=== PATIENT | male | born 1950 | race African-American/Black ===

== ENCOUNTER 2019-01-25 05:26 | Inpatient (IN) | payer MEDICARE, SELFPAY ==
[2019-01-11 12:00] VITALS: BMI 34.5
[2019-01-25] VITALS (21 sets, daily range): BP systolic 111–171; BP diastolic 65–88; PULSE 70–102; RESP 10–23; TEMP 36.1–37.3; O2SAT 90–100; BMI 35.6
--- NOTE | 2019-01-25 | DI.RAD.S_ITS ---
PROCEDURE: XR LUMBAR SPINE 2-3V INDICATIONS: L3-4 TLIF HARWARE REINSERTION TECHNIQUE: 2 views of the lumbar spine were acquired. COMPARISON: [facility] Outside Film, MR, MR LUMBAR SPINE WITHOUT CONTRAST, 10/29/2018, 16:49. [facility] Outside Film, CR, XR LUMBAR SPINE WITH OBLIQUES, 10/22/2018, 10:33. FINDINGS: Bones: These 2 digital acquisition images are obtained immediately postoperatively, documenting transverse pedicle screws and vertical fixation rods now spanning from L3-S1 and previously there had been fusion from L4-S1. A new interbody disc prosthesis is seen at L3-4 and the previously prior interbody disc prosthesis at L5-S1 is stable over time. Soft tissues: Overlying bowel gas pattern is normal. No suspicious soft tissue calcifications. IMPRESSION: Postoperative changes establish normal alignment, extending posterior fusion to include L3-L4 in addition to the previously present levels covered. Dictated by: Олег Lang M.D. on 01/25/2019 at 13:50 Approved by: Олег Lang M.D. on 01/25/2019 at 13:58
[2019-01-25] MEDS: LACTATED RINGERS 1,000 ML 42 ML IV ×2 (06:45→09:21)
[2019-01-25] MEDS: HYDROMORPHONE 2 MG INJ 1 MG IV (07:42)
--- NOTE | 2019-01-25 07:43 | PM.PREOP ---
Pre-operative Note Interval Note History & Physical reviewed/Exam performed by Physician: Yes Changes to H&P: No
[2019-01-25] MEDS: CEFAZOLIN 2 GM/100 ML FROZ.PIGGY IV ×3 (08:02→21:07)
--- NOTE | 2019-01-25 08:41 | SUR.OPER ---
Prone on spine table, head in foam head support, padded chest and pelvic supports, gel pad at knees, lower legs supported by pillows; nipples, genitalia and toes free of pressure, arms secured on foam padded arm boards at <90 degrees abduction. Tape over blanket at thigh secured to table.
[2019-01-25] MEDS: BUPIVACAINE 0.25% W/ EPI 30 ML VIAL INJ (09:22)
[2019-01-25] MEDS: BUPIVACAINE LIPOSOME 266 MG/20 ML VIAL INJ (09:23)
[2019-01-25] MEDS: ACETAMINOPHEN IV 1,000 MG/100 ML VIAL 400 MG IV (11:48)
--- NOTE | 2019-01-25 12:48 | PM.OP.1 ---
Operative Date/Time/Diagnoses Date of procedure: 01/25/19 Time of procedure: 07:48 Pre-op diagnosis: 1. Hx of L4-5, L5-S1 Fusion with spinal stenosis 2. L3-4 spinal stenosis 3. Lumbar radiculopathy Post-op diagnosis: same Procedure & Clinicians Procedure: 1. L3-4 posterolateral and posterior interbody fusion 2. L3-4 posterior interbody cage placement 3. L4-5, L5-S1 posterior segmental instrumentation removal 4. L4-5, L5-S1 revision laminectomy with exploration of fusion 5. L3-4, L4-5, L5-S1 posterior segmental instrumentation with pedicle screw placement 6. L4-5 posterolatearl fusion 7. Utilization of microsurgical technique and operating microscope Same procedure as scheduled: Yes Indications: Patient has been having chronic back pain and worsening lumbar radiculopathy. Patient had prior fusion surgery and was doing well for several years until his pain started to worsen. Patient failed multiple conservative management with worsening pain weakness and numbness in her lower extremity. Patient has been having difficulty performing activity of daily living. After discussing risks benefits of treatment options, patient elected proceed with surgery. Surgeon: Ping Johns Supervisor Finishing: Lexy Fu Click Yes if Unassisted: No Anesthesia Type: General Operative Notes Closure Type: primary Specimen(s): none sent Prosthetic devices, grafts, tissues, transplants, or devices: Globus revolve screws, Rise cage Applied: catheter Estimated Blood Loss (mL): 450 Blood products transfused: none Procedure in detail: Patient was seen in the preoperative area. Risks and benefits of the surgery was discussed with the patient. Informed consent was obtained from the patient and placed in the chart. Surgical site was marked. Patient was taken to the operative room. General anesthesia was administered. Prophylactic antibiotic was given to the patient less than 30 min before the incision was made. Patient was placed into a prone position on the Severino table. Patient's back was then prepped and draped in the sterile fashion. Time-out was performed at this time. Using patient's previous scar incision was made over the L3-4, L4-5, L5-S1 interval on the left side. Fascia was incised in line with skin incision. Patient's previously placed hardware over the L4-5, L5-S1 level was identified by dissecting down to the level the hardware using a Bovie and a Barker. The locking caps which was removed using globus screwdriver. The locking hernan was then removed from the tulips of the pedicle screws using a Amanda. The pedicle screws were then removed using the screwdriver. The screws were found to have good purchase. The Globus and MARS retractors was then placed into the wound and docked onto the L3 lamina using C-arm guidance. Using microsurgical technique and operating microscope a laminectomy facetectomy was performed by removing the L3 lamina and the L3-4 facet. The disc space at L3-4 level was identified next. And a total diskectomy was performed at L3-4 level. The endplates were decorticated using a rasp and shaver. The total diskectomy and decortication was performed at L3-4 level in order to to accomplish a L3-4 fusion. The local bone from the laminectomy and facetectomy was saved for local bone grafting. After the total diskectomy and decortication was completed, Globus viacell bone graft material was combined with local bone that was harvested earlier. Local bone and the Bi04 bone grafting material was placed into the L3-4 interbody space along with a expandable cage. The cage was expanded to its maximum height using the torque limiting screwdriver. At this time a mirror image incision was made on the right side. The fascia was incised in line with the skin incision. Patient's previously placed hardware on the right side was then removed in the same fashion as it was on the left side. The hardware was also found to have good purchase. The fusion mass on the right side was exposed by performing a right-sided hemilaminectomy at L4-5, L5-S1 level. The hemilaminectomy was performed using the Kerrison rongeur to undercut the lamina as well removing additional epidural scar tissue for purpose of decompressing the epidural space. The fusion mass was explored and was found have visible motion at L4-5 level indicating pseudoarthrosis. Globus MARS retractor was inserted and docked onto the L3-4, L4-5 posterolateral gutter. Using the power drill, posterior-lateral decortication was performed at L3-4, L4-5 level until bleeding cortical bone was identified. The remaining bone grafting material was placed into the L3-4, L4-5 posterior lateral gutter he order to accomplish posterolateral fusion at the L3-4, L4-5 level. Using the double C-arm technique, pedicle screws were placed into the L3, L4, L5, S1 pedicles bilaterally. This was done by placing the Jamshidi needle into the pedicles, then placing the guidewires over the Jamshidi needle, and finally placing the cannulated screws over the guidewires bilaterally. After the pedicle screws were placed, 2 titanium rods was locked into the heads of the pedicle screws using locking caps and torque limiting screwdriver. After all the hardware was placed, and confirmed with AP and lateral C-arm imaging, the wound was then irrigated with sterile normal saline and packed with Ray-Loreta gauze for 3 min to accomplish hemostasis. After the gauze was removed the deep fascia was closed with #1 Vicryl suture. The subcutaneous layer was closed with 2-0 Vicryl. The skin was closed with skin alex. Patient tolerated the procedure well. There were no complications. Complications: none Condition: stable Disposition: PACU Plan for aftercare: Admit to inpatient hospital
[2019-01-25] MEDS: HYDROMORPHONE 2 MG INJ 0.5 MG IV ×3 (13:15→13:41)
[2019-01-25] MEDS: hydrOXYzine 50 MG/ML INJ 25 MG IM (13:16)
--- NOTE | 2019-01-25 13:31 | SUR.PHASEI ---
care transferred to [facility] report given.
--- NOTE | 2019-01-25 13:31 | SUR.PHASEI ---
assumed care of pt at this time. pt laying in bed with eyes closed, easily responds to voice when spoken to.
--- NOTE | 2019-01-25 14:03 | SUR.PHASEI ---
REPORT CALLED TO [facility]AL[facility] WORKMAN ON ACUTE CARE FLOOR. PT IN STABLE CONDITION, VSS. PT RESTING IN BED WITH EYES CLOSED, EASILY AROUSABLE TO VOICE WHEN SPOKEN TO.
--- NOTE | 2019-01-25 14:17 | SUR.PHASEI ---
PT TRANSFERRED TO ACUTE CARE IN STABLE CONDITION. BEDSIDE REPORT GIVEN TO WALTER WORKMAN UPON ARRIVAL. TRANSFERRED CARE OF PT TO [facility] WORKMAN AT THAT TIME.
[2019-01-25] MEDS: SODIUM CHLORIDE 0.9% 1,000 ML 100 ML IV (14:23)
--- NOTE | 2019-01-25 14:44 | PC.NURSE ---
Ptdrowsy, arouses when spoken to, rates back pain 10/10 but quickly falls back asleep. Dressing to back CDI, CMS+. Scd's on. Pt snoring sats on %L 93-94%. Bed alarm on, patients spouse at bedside.
--- NOTE | 2019-01-25 15:40 | PT-IP ANOTE ---
Per RN, pt is not ready to participate with therapies. Will try again tomorrow.
[2019-01-25] MEDS: OXYCODONE IR 5 MG TABLET 10 MG PO ×2 (19:17→23:29)
[2019-01-25] MEDS: DOCUSATE 100 MG CAPSULE PO (21:08)
[2019-01-25] MEDS: SENNOSIDES 8.6 MG TABLET 17.2 MG PO (21:08)
--- NOTE | 2019-01-25 23:46 | PC.NURSE ---
Addendum entered by Ester Bustillos R.N. 01/26/19 05:25: Slept between repositioning. Currently having more pain and rates severity as 8/10; assisted to reposition onto back and medicated with Oxycodone. Original Note: Patient is alert and oriented. Breath sounds very diminished with scattered expiratory wheezing. Oxygen at 2L/min per NC with sat of 96%. Instructed to CDB to clear lungs and prevent pneumonia. HRR but tachy at 101 bpm and BP is elevated Denies nausea. BT present but denies flatus. Indwelling catheter is patent with clear elbert urine. Dressing to back is intact with shadow drainage noted and outlined. Complains of 9/10 aching pain so medicated with Oxycodone, repositioned and ice pack applied. CMS is intact. Wearing bilateral foot SCD's. Has not been out of bed since return from surgery. Fall risk score is moderate; bed alarm is activated. rooming in.
[2019-01-26] VITALS (8 sets, daily range): BP systolic 125–150; BP diastolic 61–80; PULSE 80–109; RESP 12–18; TEMP 36.4–37.7; O2SAT 91–96
[2019-01-26] MEDS: SODIUM CHLORIDE 0.9% 1,000 ML 100 ML IV (01:38)
[2019-01-26] MEDS: CEFAZOLIN 2 GM/100 ML FROZ.PIGGY IV (04:30)
[2019-01-26] MEDS: OXYCODONE IR 5 MG TABLET 10 MG PO ×5 (05:21→19:20)
[2019-01-26 06:25] LABS: Hematocrit 41.8 % (41-53); Hemoglobin 13.7 g/dL (13.5-17.5)
[2019-01-26] MEDS: DOCUSATE 100 MG CAPSULE PO ×2 (07:57→21:27)
[2019-01-26] MEDS: SODIUM CHLORIDE 0.9% FLUSH 10 ML IV ×2 (08:01→21:27)
[2019-01-26] MEDS: MAG HYDROX/ALUM/SIMETH 30 ML UDC PO ×2 (08:39→14:19)
--- NOTE | 2019-01-26 09:05 | PC.NURSE ---
Addendum entered by Astrid Mayer R.N. 01/26/19 09:17: Pt requesting to use the bathroom, one person assist OOB, denies dizziness. Pt reports pain to right upper quad improved. Gait steady to BR with FWW and gait belt. No BM but patient passed flatus. Assisted back to chair. Instructed to call before getting up, patient verbalized understanding. Original Note: Pt c/o chest pain, described as an ache. States I think it's gas. Patient pointing to right upper quad. Felton sob, nausea and any radiation of pain. Maalox given. Davon GAVIRIA notified of above, no new orders. VSS.
--- NOTE | 2019-01-26 09:20 | PM.PNPO.1 ---
Subjective Date Patient Seen: 01/26/19 Time Patient Seen: 09:20 Interval history: Hospital day 2, postop day 1 following L3-4 TLIF cage: L4 through S1 HWR are with revision laminectomy, exploration of fusion; L3 through S1 posterior screw fixation by Dr. Johns. Patient remained stable postoperatively. He states that his preoperative leg pain has improved since surgery. He has not been out of bed yet. No PT yet. Still has Hernandez catheter. Using oxycodone 10 mg for pain. Exam Vital Signs (past 8 hours): - 01/26/19 03:57 01/26/19 08:00 Temperature 99.8 F H 98.6 F Pulse Rate 109 H 108 H Respiratory Rate 18 18 Blood Pressure 136/65 150/73 H Pulse Oximetry 95 92 Oxygen Delivery Method Room Air Oxygen Flow Rate 2 Narrative Exam Narrative: Alert, oriented no acute distress resting in bed. Back. Dressing to lumbar area as shadowing but otherwise dry without signs of inflammation or infection. Legs. No calf pain or swelling. Pulses symmetrical. Good strength on foot dorsiflexion plantar flexion. Good sensation to touch to both legs. Objective Labs Result Diagrams: 01/26/19 05:54 Labs: Laboratory Results - last 24 hr 01/26/19 05:54 Hgb 13.7 Hct 41.8 Assessment & Plan Post-op Postoperative Procedures Operation Date: 01/25/19 07:45 Actual Procedures Side Surgeon p L3-4 TLIF, L4-5,L5-S1 HWR; L3-4,L4-5,L5-S1 PSF w/Instru. Not Applicable Ping Johns MD Plan: Patient will begin working with physical therapy today. DC Hernandez catheter when he is more active. Anticipate discharge home in the next 1-2 days if stable. Quality VTE Deep Vein Thrombosis/Pulmonary Embolism Present on Admission: No
--- NOTE | 2019-01-26 10:00 | PT.IIE ---
Current Diagnoses Other spondylosis with radiculopathy, lumbar region (01/25/19) Spinal stenosis, lumbar region with neurogenic claudication (01/25/19) Arthrodesis status (01/25/19) Surgery Performed Operation Date: 01/25/19 07:45 Actual Procedures p L3-4 TLIF, L4-5,L5-S1 HWR; L3-4,L4-5,L5-S1 PSF w/Instru.(Not Applicable) - Ping Johns MD Surgical History (Last Updated 01/11/19 @ 13:11 by Mary Ann Rhodes RN) History of arthroplasty of left knee (Acute) History of colonoscopy (Acute) History of lumbar fusion (Acute) History of penile implant (Acute) History of repair of rotator cuff (Acute) Hx of arthroscopy of left knee (Acute) S/P cervical spinal fusion (Acute) Medical History (Last Updated 01/11/19 @ 13:42 by Mary Ann Rhodes RN) Alcohol dependence (Acute) Benign neoplasm of colon (Acute) COPD (chronic obstructive pulmonary disease) (Acute) Cervicalgia (Acute) Current every day smoker (Acute) Elevated d-dimer (Acute 11/17/18) Heart murmur (Acute) Hiatal hernia (Acute) Numbness and tingling in both hands (Acute) Osteoarthritis (Acute) PUD (peptic ulcer disease) (Acute) Sciatica (Acute) Sepsis (Acute 11/17/18) Sepsis with acute hypoxic respiratory failure (Acute 11/17/18) Severe low back pain (Acute) Physical Therapy Inpatient Evaluation/Re-Eval M1 PT/OT-IP Prior Functional Status Start: 01/25/19 14:12 Freq: NEEDED Status: Active Protocol: Document 01/26/19 10:00 AB (Rec: 01/26/19 13:03 AB [id number]) Medical Review Prior Functional Status Medical History Reviewed Yes Diet/Fluid Consistency Regular Communication able to make needs known Mobility and Gait pt stated that he is independent with all mobilities and ambulation using SPC outdoors; ambulated without AD indoors but tends to furniture cruise Social History Household Members spouse Living Arrangements House Number of Floors (Floors) Two Floors Number of Stairs To Enter/Railing? has 3 steps to enter with 2 pillars/post to hold on to to bedroom level: has 8 steps L rail ascending + 8 steps with R rail ascending Home Environment High Toilet Walk in Shower Built-In Shower Seat Home Equipment Straight Cane Hand Held Shower Additional Social History Comment pt stated that his works and he is left alone from 6 am to 5 pm M2 PT-IP Current Condition Start: 01/25/19 14:12 Freq: NEEDED Status: Active Protocol: Document 01/26/19 10:00 AB (Rec: 01/26/19 13:03 AB [id number]) Physical Therapy Current Condition Current Condition Evaluation Date 01/26/19 Treatment Diagnosis L4-S1 instr. removal; L3-S1 inst.; L4-5 fusion; difficulty in walking Onset Date 01/25/19 Precautions Lumbar Precautions Log Roll No Twisting Limit Bending Lifting Restriction of 10 lbs Gait Belt above Incisional Area M3 PT-IP Subjective Start: 01/25/19 14:12 Freq: NEEDED Status: Active Protocol: Document 01/26/19 10:00 AB (Rec: 01/26/19 13:03 AB [id number]) Subjective Physical Therapy Visit Type Type Initial Evaluation Visit Start Time 10:00 Visit Stop Time 10:32 Total Visit Minutes 32 Number of TRANSFORMER ASSEMBLER Visits 0 Physical Therapy Visit Comments Patient Comments pt agreeable to do PT Therapy Pain Assessment Pain When Pain Assessed At Rest Pain Present Pain Present Pain Reported Location lower back Intensity 5 Scale Used Numeric (1 - 10) Pain Management Techniques Apply Cold Re-positioning Timing of Activity with Medications M4 PT-IP Mobility and Gait Start: 01/25/19 14:12 Freq: NEEDED Status: Active Protocol: Document 01/26/19 10:00 AB (Rec: 01/26/19 13:03 AB [id number]) PT-Bed Mobility Assessment Rolling Type of Rolling Log Rolling Level of Assist Standby Assistance Supine to Sit Supine to Sit Standby Assistance Scooting Scooting to Edge of Bed Standby Assistance Scooting Up and Down in Bed Standby Assistance PT-Transfer Assessment Sit to and From Stand Sit to and from Stand Contact Guard Assistance Equipment Transfer Assistive Device Gait Belt Front Wheeled Walker Orthotic/Prosthetic Devices or Brace: No Transfers Transfer Destination Bed Transfer Technique Stand Step Pivot Transfer Ability Level of Assist Contact Guard Assistance Gait Assessment Gait Gait Assistance Required: Contact Guard Assist Distance (Feet) 50 Able to Maintain Weight Bearing Status Yes During Gait Assistive Devices Assistive Device Gait Belt Front Wheeled Walker Gait Deviations General Gait Pattern Antalgic Decreased Stride Length Decreased Feet Clearance Lateral Trunk Lean Factors Limiting Gait Function Factors Limiting Gait Function Decreased Activity Tolerance Decreased Sensation Decreased Strength Limited Range of Motion Pain Poor Balance PT-Balance Assessment Sitting Balance and Reactions Static Sitting Balance Ability Good Dynamic Sitting Balance Ability Good Standing Balance and Reactions Static Standing Balance Ability Fair Dynamic Standing Balance Ability Fair Device Used FWW M5 PT-IP Objective Assessments Start: 01/25/19 14:12 Freq: NEEDED Status: Active Protocol: Document 01/26/19 10:00 AB (Rec: 01/26/19 13:03 AB [id number]) Orientation Orientation/Cognition Level of Alertness Alert Orientation Name Age Place Situation Language Function Ability No Deficits Noted Safety Awareness Understands Safety Issues Memory Description No Deficits Noted Gross Range of Motion Lower Extremity ROM Assessment Within Functional Limits Strength Lower Extremity Strength Assessment Within Functional Limits Coordination Assessment Gross Coordination Gross Coordination WNL Sensation Assessment Sensation Gross Sensation Right LE Impaired Sensation Description Numbness Comments Sensation Comments R thigh decrease sensation Muscle Tone Muscle Tone WNL Yes M6 PT-IP Treatment Start: 01/25/19 14:12 Freq: NEEDED Status: Active Protocol: Document 01/26/19 10:00 AB (Rec: 01/26/19 13:03 AB [id number]) Physical Therapy Treatment Education Education Provided Precautions Weight Bearing Status Post-Op Packet Safety M7 PT-IP Assessment and Plan Start: 01/25/19 14:12 Freq: NEEDED Status: Active Protocol: Document 01/26/19 10:00 AB (Rec: 01/26/19 13:03 AB [id number]) PT Summary Assessment and Plan Potential Rehabilitation Potential Good Status of Condition at Evaluation Stable Summary Impairments Pain ROM Strength Balance Coordination Sensation Bed Mobility Transfers Gait Activity Tolerance Assessment Summary pt requiring CGA with mobility and will likely improve during hospital stay. will conduct stairclimbing training when appropriate. Goals Bed Mobility Goal Independent Transfer Goal Independent Front Wheeled Walker Gait Goal Independent Front Wheel Walker Gait Distance 200 Other Goals up/down 2 steps with 2 posts SBA 8 steps with L rail ascending +8 steps with R rail ascending SBA Days to Meet Goals 5 Frequency of Treatment Frequency Of Treatment Twice a Day Treatment Plan Physical Therapy Treatment Plan Bed Mobility Training Transfer Training Gait Training Therapeutic Exercise Balance Retraining Post Op Education Discharge Planning Hot or Cold Pack Neuromuscular Re-ed Coordination Retraining Manual Therapy Other Recommendations and Next Treatment ambulation, stair climbing Focus Recommendations To Nursing Amount of Assist Needed 1 Person Assist Discharge Recommendations PT Discharge Recommendations Home with Assistance Equipment Needed for Home Before FWW: tall Discharge
[2019-01-26] MEDS: TIZANIDINE 4 MG TABLET PO ×2 (10:46→19:20)
[2019-01-26] MEDS: NICOTINE 21 MG PATCH TOP (12:30)
--- NOTE | 2019-01-26 14:27 | PT.IPTN ---
Current Diagnoses Other spondylosis with radiculopathy, lumbar region (01/25/19) Spinal stenosis, lumbar region with neurogenic claudication (01/25/19) Arthrodesis status (01/25/19) Surgery Performed Operation Date: 01/25/19 07:45 Actual Procedures p L3-4 TLIF, L4-5,L5-S1 HWR; L3-4,L4-5,L5-S1 PSF w/Instru.(Not Applicable) - Ping Johns MD Physical Therapy Treatment Note M2 PT-IP Current Condition Start: 01/25/19 14:12 Freq: NEEDED Status: Active Protocol: Document 01/26/19 10:00 AB (Rec: 01/26/19 13:03 AB [id number]) Physical Therapy Current Condition Current Condition Evaluation Date 01/26/19 Treatment Diagnosis L4-S1 instr. removal; L3-S1 inst.; L4-5 fusion; difficulty in walking Onset Date 01/25/19 Precautions Lumbar Precautions Log Roll No Twisting Limit Bending Lifting Restriction of 10 lbs Gait Belt above Incisional Area M3 PT-IP Subjective Start: 01/25/19 14:12 Freq: NEEDED Status: Active Protocol: Document 01/26/19 14:23 SAK (Rec: 01/26/19 14:27 SAK [id number]) Subjective Physical Therapy Visit Type Type Treatment Note Visit Start Time 14:00 Visit Stop Time 14:22 Total Visit Minutes 25 Number of GRAPHIC ARTS INSTRUCTOR Visits 0 Physical Therapy Visit Comments Patient Comments Willing to participate in PT. Requests not doing stairs until tomorrow. Therapy Pain Assessment Pain When Pain Assessed During Mobility Pain Present Pain Present Pain Reported Location lower back Intensity 5 Scale Used Numeric (1 - 10) M4 PT-IP Mobility and Gait Start: 01/25/19 14:12 Freq: NEEDED Status: Active Protocol: Document 01/26/19 14:23 SAK (Rec: 01/26/19 14:27 SAK [id number]) PT-Bed Mobility Assessment Rolling Type of Rolling Log Rolling Level of Assist Standby Assistance Supine to Sit Supine to Sit Standby Assistance Scooting Scooting to Edge of Bed Standby Assistance Scooting Up and Down in Bed Standby Assistance PT-Transfer Assessment Sit to and From Stand Sit to and from Stand Contact Guard Assistance Minimal Assistance Equipment Transfer Assistive Device Gait Belt Front Wheeled Walker Orthotic/Prosthetic Devices or Brace: No Gait Assessment Gait Gait Assistance Required: Standby Assistance Contact Guard Assist Distance (Feet) 50 Able to Maintain Weight Bearing Status Yes During Gait Assistive Devices Assistive Device Gait Belt Front Wheeled Walker Gait Deviations General Gait Pattern Antalgic Decreased Stride Length Decreased Feet Clearance Lateral Trunk Lean Factors Limiting Gait Function Factors Limiting Gait Function Decreased Activity Tolerance Decreased Sensation Decreased Strength Limited Range of Motion Pain Poor Balance M5 PT-IP Objective Assessments Start: 01/25/19 14:12 Freq: NEEDED Status: Active Protocol: Document 01/26/19 10:00 AB (Rec: 01/26/19 13:03 AB [id number]) Orientation Orientation/Cognition Level of Alertness Alert Orientation Name Age Place Situation Language Function Ability No Deficits Noted Safety Awareness Understands Safety Issues Memory Description No Deficits Noted Gross Range of Motion Lower Extremity ROM Assessment Within Functional Limits Strength Lower Extremity Strength Assessment Within Functional Limits Coordination Assessment Gross Coordination Gross Coordination WNL Sensation Assessment Sensation Gross Sensation Right LE Impaired Sensation Description Numbness Comments Sensation Comments R thigh decrease sensation Muscle Tone Muscle Tone WNL Yes M6 PT-IP Treatment Start: 01/25/19 14:12 Freq: NEEDED Status: Active Protocol: Document 01/26/19 10:00 AB (Rec: 01/26/19 13:03 AB [id number]) Physical Therapy Treatment Education Education Provided Precautions Weight Bearing Status Post-Op Packet Safety M7 PT-IP Assessment and Plan Start: 01/25/19 14:12 Freq: NEEDED Status: Active Protocol: Document 01/26/19 14:23 SAK (Rec: 01/26/19 14:27 SAK [id number]) PT Summary Assessment and Plan Goals Bed Mobility Goal Independent Transfer Goal Independent Front Wheeled Walker Gait Goal Independent Front Wheel Walker Gait Distance 200 Other Goals up/down 2 steps with 2 posts SBA 8 steps with L rail ascending +8 steps with R rail ascending SBA Days to Meet Goals 5 Frequency of Treatment Frequency Of Treatment Twice a Day Treatment Plan Physical Therapy Treatment Plan Bed Mobility Training Transfer Training Gait Training Therapeutic Exercise Balance Retraining Post Op Education Discharge Planning Hot or Cold Pack Neuromuscular Re-ed Coordination Retraining Manual Therapy Other Recommendations and Next Treatment ambulation, stair climbing Focus Recommendations To Nursing Amount of Assist Needed 1 Person Assist Discharge Recommendations PT Discharge Recommendations Home with Assistance Equipment Needed for Home Before FWW: tall Discharge
--- NOTE | 2019-01-26 14:31 | CM.DANOTE ---
DCP: Case received, EMR reviewed and met with patient. Introduced self and role. Baseline history and living situation obtained from patient. DCP template assessment completed with information currently available. Patient is a 68 year old male who admitted yesterday morning to the care of the orthopedic team. PCP: Dr. Nava. Payer: confirmed: Medicare. Patient came to the hospital for a surgical procedure. He had L4-5 fusion, laminectomy. Patient has history of chronic back pain secondary to spinal stenosis. Patient had spinal surgery back in 2011, and had a fall in 2018. Met briefly with patient. He was sitting on the edge of the bed. Alert and oriented. He resides in [place], [place] with his spouse, Venus. He uses a cane at home, and is independent. He has been driving as well. Patient has already worked with physical therapy. He stated, they told me that I probably won't go home until . P: DCP to continue to follow closely. Patient should be able to return home with the support of his when he is medically stable. Nusrat Simmons RN/Credit Risk Review Officer
--- NOTE | 2019-01-26 17:17 | OT.IP.EVAL ---
Current Diagnoses Other spondylosis with radiculopathy, lumbar region (01/25/19) Spinal stenosis, lumbar region with neurogenic claudication (01/25/19) Arthrodesis status (01/25/19) Surgery Performed Operation Date: 01/25/19 07:45 Actual Procedures p L3-4 TLIF, L4-5,L5-S1 HWR; L3-4,L4-5,L5-S1 PSF w/Instru.(Not Applicable) - Ping Johns MD Past Medical History (Last Updated 01/11/19 @ 13:42 by Mary Ann Rhodes, RN) Alcohol dependence (Acute) Benign neoplasm of colon (Acute) COPD (chronic obstructive pulmonary disease) (Acute) Cervicalgia (Acute) Current every day smoker (Acute) Elevated d-dimer (Acute 11/17/18) Heart murmur (Acute) Hiatal hernia (Acute) Numbness and tingling in both hands (Acute) Osteoarthritis (Acute) PUD (peptic ulcer disease) (Acute) Sciatica (Acute) Sepsis (Acute 11/17/18) Sepsis with acute hypoxic respiratory failure (Acute 11/17/18) Severe low back pain (Acute) Surgical History (Last Updated 01/11/19 @ 13:11 by Mary Ann Rhodes, RN) History of arthroplasty of left knee (Acute) History of colonoscopy (Acute) History of lumbar fusion (Acute) History of penile implant (Acute) History of repair of rotator cuff (Acute) Hx of arthroscopy of left knee (Acute) S/P cervical spinal fusion (Acute) Occupational Therapy Inpatient Evaluation/Re-Eval M2 OT-IP Current Condition Start: 01/26/19 13:38 Freq: Status: Active Protocol: Document 01/26/19 09:00 [facility] (Rec: 01/26/19 17:03 [facility] [id number]) Occupational Therapy Current Condition Current Condition Evaluation Date 01/26/19 Treatment Diagnosis S/p L3-4 TLIF, L4-5, L5-S1 HWR , L3-4, L4-5, L5-S1 PSF with instr, muscle weakness Diagnosis Onset Date 01/25/19 Post Operative Precautions Lumbar Precautions Log Roll No Twisting Limit Bending Lifting Restriction of 10 lbs Gait Belt above Incisional Area Weight Bearing Status Weight Bearing Status Weight Bear as Tolerated M3 OT- IP Subjective and Pain Start: 01/26/19 13:38 Freq: Status: Active Protocol: Document 01/26/19 09:00 [facility] (Rec: 01/26/19 17:03 [facility] [id number]) OT- Subjective Occupational Therapy Visit Type Type Initial Evaluation Visit Start Time 09:00 Visit Stop Time 09:48 Total Visit Minutes 48 Occupational Therapy Visit Comments Patient Comments Pt agreeable to do therapy and willing to get up. OT Pain Assessment Pain When Pain Assessed At Rest Pain Present Pain Present Denied Pain M4 OT- IP ADL's Start: 01/26/19 13:38 Freq: Status: Active Protocol: Document 01/26/19 09:00 [facility] (Rec: 01/26/19 17:03 [facility] [id number]) OT CJB-[id number] General Evaluation Self-Feeding Ability Independent OT ADL-Grooming Comments OT Grooming Comments Spoke of spitting into cup or bending at hips. Pt states has a stool at home that he sits while doing grooming needs. OT ADL-Dressing General Eval Lower Body Dressing Ability Maximum Assistance Comments OT Dressing Comments Pt needing assist for socks, able to show pt use of information technology assistant and sock aid and pt able to show good safety for use. OT ADL-Toileting Comments OT Toileting Comments Pt not having to go, catheter still in. Educated to use FWW while standing over the toilet. Pt has long arms and may be able to lean to wiipe otherwise educated to stand to wipe. OT ADL-Bathing Comments OT Bathing Comments Not completed, to try tomorrow if appropriate. M5 OT- IP IADL's Start: 01/26/19 13:38 Freq: Status: Active Protocol: Document 01/26/19 09:00 [facility] (Rec: 01/26/19 17:03 [facility] [id number]) OT-Instrumental Activities of Daily Living Home Safety Awareness Awareness of Need for Assistance at Home Good Awareness Ability to Problem Solve Emergency Able to Problem Solve Situations Medication Management Medication Management No Deficits Identified Meal Preparation Meal Preparation Caregiver Provides Assist Breaker Off Breaker Off Caregiver Provides Assist M6 OT- IP Functional Cognition Start: 01/26/19 13:38 Freq: Status: Active Protocol: Document 01/26/19 09:00 [facility] (Rec: 01/26/19 17:03 [facility] [id number]) Cognitive Factors Limiting Selfcare Function Cognitive Ability Level of Alertness Alert Patient Orientation Name Place Situation Attention Span Ability Capable of Focused Attention Capable of Sustained Attention Ability to Follow Commands Able to Follow One Step Commands Memory Description No Deficits Noted Safety Awareness Decreased Recall of Precautions Decreased Ability to Apply Precautions Underestimates Need for Assistance Cognitive Comments Cognitive Assessment Comments Pt needing cues to incorporate back precautions initially. Pt able to follow one step command with increased time and needing visual cues for bed mobility needs. OT- Vision and Hearing OT- Hearing Assessment OT- Hearing Assessment WFL OT- Vision Assessment Vision Assessment Comments Pt states pt's took his glasses home, unable to see educational materials for back sx. M7 OT- IP Mobility and Balance Start: 01/26/19 13:38 Freq: Status: Active Protocol: Document 01/26/19 09:00 [facility] (Rec: 01/26/19 17:03 [facility] [id number]) OT- Bed Mobility Assessment Rolling Type of Rolling Roll to Left Supine to Sit Supine to Sit Assist Standby Assistance Sit to Supine Sit to Supine Assist Standby Assistance Scooting Scooting to Edge of Bed Standby Assistance Scooting Up and Down in Bed Standby Assistance OT-Transfer Assessment Sit to and From Stand Sit to and from Stand Contact Guard Assistance Transfers Transfer Ability Minimal Assistance Technique Transfer Destination Bed Chair Transfer Technique Stand Step Pivot Devices Transfer Assistive Devices Gait Belt Front Wheeled Walker Comments Mobility Comments After education pt able to show good safety for bed mobility even able to simulate high bed like he has at home. Sit to stand CGA, cues to hip hinge and straighten his legs. MARCOS for transfer with FWW. OT- Balance Assessment Sitting Balance and Reactions Static Sitting Balance Ability Normal Dynamic Sitting Balance Ability Good Standing Balance and Reactions Static Standing Balance Ability Fair M8 OT- IP Objective Assessments Start: 01/26/19 13:38 Freq: Status: Active Protocol: Document 01/26/19 09:00 [facility] (Rec: 01/26/19 17:03 [facility] [id number]) OT Gross Range of Motion Upper Extremity Range of Motion Assessment Within Functional Limits OT Strength Upper Extremity Strength Assessment Within Functional Limits OT-Muscle Tone Assessment Muscle Tone WNL Yes M9 OT- IP Assessment and Plan Start: 01/26/19 13:38 Freq: Status: Active Protocol: Document 01/26/19 09:00 [facility] (Rec: 01/26/19 17:03 [facility] [email or web address]) OT Summary Assessment and Plan Potential Rehabilitation Potential Good Analytic Complexity at Evaluation Low Summary OT Impairments Strength Balance Functional Mobility Grooming Dressing Toileting Bathing Toilet Transfers Shower Transfers Progress Towards Goals Progressing Toward Goals Assessment Summary Pt low complexity and main barriers are step at home and now needing for ADL's especially LB dressing needs. Pt's will not be able to assist at home as works from 6am to 5pm and pt will have to be MOD I at home. Therefore pending progress suggest home with assist. Goals Grooming Goal Independent Dressing Goal Minimal Assistance Toileting Goal Independent Bathing Goal Minimal Assistance Toilet Transfer Goal Independent Shower Transfer Goal Standby Assistance Patient/Caregiver Education Goal Demonstrate Post-Op Precautions Caregiver Independent Assisting Patient Days to Meet Goals 3 Frequency of Treatment Frequency Of Treatment Once a Day Treatment Plan OT Treatment Plan ADL Training Functional Cognition Training Functional Mobility Patient/Family Education Discharge Planning Other Treatment Recommendations and Next Shower, family training Treatment Focus Discharge Recommendations OT Discharge Recommendations Home with Assistance Home Equipment Needs information technology assistant, sock aid, tall FWW
--- NOTE | 2019-01-26 19:07 | PC.NURSE ---
Evening note: Hossein Ox3 and situation tonight. Sat in recliner for dinner, reporting increased pain to low back, medicated with oxycodone. Distal edge of cover site rolling up, 1/2 of drsg with shadow drainage. Cover site removed, I replaced with 2 cover sites. Incision sites dry & intact, steri-strips still in place, no redness or swelling observed. When eating meal he reported increased gas pain, requesting to sit on toilet. Denies passing any flatus today. Assisted him to BR, he was able to pass a lot of flatus, no BM. Voided unmeasured urine in toilet. Reports good pain relief from passing gas, refused suppository, maalox, prune juice or other intervention at this point. Abdomen round & distended. Refused majority of meal but ate chicken noodle soup instead. Denies other needs/concerns at this time. Alarm active & fall precautions in place; patient reminded to call staff if he needs OOB.
[2019-01-26] MEDS: SENNOSIDES 8.6 MG TABLET 17.2 MG PO (21:27)
[2019-01-27] MEDS: OXYCODONE IR 5 MG TABLET 10 MG PO ×7 (01:04→21:48)
[2019-01-27] MEDS: MAG HYDROX/ALUM/SIMETH 30 ML UDC PO (01:05)
[2019-01-27 06:02] VITALS: BP 131/72; PULSE 93; RESP 16; TEMP 37.4; O2SAT 93
[2019-01-27] MEDS: hydrOXYzine pamoate 25 MG CAPSULE PO ×2 (07:01→21:49)
--- NOTE | 2019-01-27 07:47 | PM.PNPO.1 ---
Subjective Date Patient Seen: 01/27/19 Time Patient Seen: 07:47 Interval history: Interval history: POD#2 s/p L3-4 TLIF cage, L4 through S1 HWR with revision laminectomy, exploration of fusion, L3 through S1 posterior screw fixation by Dr. Johns. Patient remaines stable postoperatively. He states that his preoperative leg pain has improved since surgery, but he notes an area of numbness along the right lateral leg to the knee. He has mobililized about the room and short distance in the forrest but has not attempted stairs yet. Hernandez catheter removed and he has had a bowel movement. Using oxycodone 10 mg for pain. Exam Vital Signs (past 8 hours): - 01/27/19 06:02 Temperature 99.3 F Pulse Rate 93 H Respiratory Rate 16 Blood Pressure 131/72 Pulse Oximetry 93 Oxygen Delivery Method Room Air Oxygen Flow Rate 0 Narrative Exam Narrative: 68 year old male. Alert and oriented in no acute distress. Dressing in place over lumbar spine is intact with area of shadow drainage on the left dressing. Intact dorsiflexion/plantar flexion of the foot. Palpable pedal pulse. Calves soft, compressible. Objective Labs Result Diagrams: 01/26/19 05:54 Assessment & Plan Post-op Postoperative Procedures Operation Date: 01/25/19 07:45 Actual Procedures Side Surgeon p L3-4 TLIF, L4-5,L5-S1 HWR; L3-4,L4-5,L5-S1 PSF w/Instru. Not Applicable Ping Johns MD Patient continues to progress well postoperatively. He has flight of stairs at home that he does not yet feel ready to climb as he has not attempted steps yet. Will continue to work with PT. Anticipate discharge tomorrow. Quality VTE Deep Vein Thrombosis/Pulmonary Embolism Present on Admission: No
[2019-01-27 08:13] VITALS: BP 121/56; PULSE 86; RESP 17; TEMP 36.4; O2SAT 92
[2019-01-27] MEDS: DOCUSATE 100 MG CAPSULE PO (08:55)
[2019-01-27] MEDS: NICOTINE 21 MG PATCH TOP (08:55)
--- NOTE | 2019-01-27 09:10 | PC.NURSE ---
Pt is sitting up in his chair, he now denies gas pain's. He had been up ambulating earlier in his room. Dressing to lower back with 2 small amounts of ss drainage, this will be changed before pts discharges home. He is ambulating with walker an sba. Using urinal at bedside and sometimes goes in the bathroom. CMS wnl and ppx2. Pt is resting comfortably in the chair and dozing on/off.
--- NOTE | 2019-01-27 10:30 | PT.IPTN ---
Current Diagnoses Other spondylosis with radiculopathy, lumbar region (01/25/19) Spinal stenosis, lumbar region with neurogenic claudication (01/25/19) Arthrodesis status (01/25/19) Surgery Performed Operation Date: 01/25/19 07:45 Actual Procedures p L3-4 TLIF, L4-5,L5-S1 HWR; L3-4,L4-5,L5-S1 PSF w/Instru.(Not Applicable) - Ping Johns MD Physical Therapy Treatment Note M2 PT-IP Current Condition Start: 01/25/19 14:12 Freq: NEEDED Status: Active Protocol: Document 01/26/19 10:00 AB (Rec: 01/26/19 13:03 AB [id number]) Physical Therapy Current Condition Current Condition Evaluation Date 01/26/19 Treatment Diagnosis L4-S1 instr. removal; L3-S1 inst.; L4-5 fusion; difficulty in walking Onset Date 01/25/19 Precautions Lumbar Precautions Log Roll No Twisting Limit Bending Lifting Restriction of 10 lbs Gait Belt above Incisional Area M3 PT-IP Subjective Start: 01/25/19 14:12 Freq: NEEDED Status: Active Protocol: Document 01/27/19 10:30 GGD (Rec: 01/27/19 11:02 GGD [id number]) Subjective Physical Therapy Visit Type Type Treatment Note Visit Start Time 10:05 Visit Stop Time 10:30 Total Visit Minutes 25 Number of TAX PROCESSOR Visits 1 Physical Therapy Visit Comments Patient Comments Pt willing to work with therapy Therapy Pain Assessment Pain When Pain Assessed During Mobility Pain Present Pain Present Pain Reported M4 PT-IP Mobility and Gait Start: 01/25/19 14:12 Freq: NEEDED Status: Active Protocol: Document 01/27/19 10:30 [facility]GD (Rec: 01/27/19 11:13 GGD [id number]) PT-Transfer Assessment Sit to and From Stand Sit to and from Stand Contact Guard Assistance Equipment Transfer Assistive Device Gait Belt Front Wheeled Walker Orthotic/Prosthetic Devices or Brace: No Transfers Transfer Destination Toilet Transfer Ability Level of Assist Contact Guard Assistance Gait Assessment Gait Gait Assistance Required: Standby Assistance Contact Guard Assist Distance (Feet) 220 Able to Maintain Weight Bearing Status Yes During Gait Assistive Devices Assistive Device Gait Belt Front Wheeled Walker Gait Deviations General Gait Pattern Antalgic Decreased Stride Length Decreased Feet Clearance Lateral Trunk Lean Factors Limiting Gait Function Factors Limiting Gait Function Decreased Activity Tolerance Decreased Sensation Decreased Strength Limited Range of Motion Pain Poor Balance M5 PT-IP Objective Assessments Start: 01/25/19 14:12 Freq: NEEDED Status: Active Protocol: Document 01/26/19 10:00 AB (Rec: 01/26/19 13:03 AB [id number]) Orientation Orientation/Cognition Level of Alertness Alert Orientation Name Age Place Situation Language Function Ability No Deficits Noted Safety Awareness Understands Safety Issues Memory Description No Deficits Noted Gross Range of Motion Lower Extremity ROM Assessment Within Functional Limits Strength Lower Extremity Strength Assessment Within Functional Limits Coordination Assessment Gross Coordination Gross Coordination WNL Sensation Assessment Sensation Gross Sensation Right LE Impaired Sensation Description Numbness Comments Sensation Comments R thigh decrease sensation Muscle Tone Muscle Tone WNL Yes M6 PT-IP Treatment Start: 01/25/19 14:12 Freq: NEEDED Status: Active Protocol: Document 01/27/19 10:30 GGD (Rec: 01/27/19 11:13 GGD [id number]) Physical Therapy Treatment Education Education Provided Precautions M7 PT-IP Assessment and Plan Start: 01/25/19 14:12 Freq: NEEDED Status: Active Protocol: Document 01/27/19 10:30 GGD (Rec: 01/27/19 11:13 GGD [id number]) PT Summary Assessment and Plan Summary Assessment Summary Pt able to progress gait distance. He did need cues for posture and sit <> stand. Pt will need to stair training before D/C home. Frequency of Treatment Frequency Of Treatment Twice a Day Treatment Plan Other Recommendations and Next Treatment ambulation, stair climbing Focus Recommendations To Nursing Amount of Assist Needed 1 Person Assist Discharge Recommendations PT Discharge Recommendations Home with Assistance Equipment Needed for Home Before FWW: tall Discharge
--- NOTE | 2019-01-27 11:02 | PT.IPTN ---
Current Diagnoses Other spondylosis with radiculopathy, lumbar region (01/25/19) Spinal stenosis, lumbar region with neurogenic claudication (01/25/19) Arthrodesis status (01/25/19) Surgery Performed Operation Date: 01/25/19 07:45 Actual Procedures p L3-4 TLIF, L4-5,L5-S1 HWR; L3-4,L4-5,L5-S1 PSF w/Instru.(Not Applicable) - Ping Johns MD Physical Therapy Treatment Note M2 PT-IP Current Condition Start: 01/25/19 14:12 Freq: NEEDED Status: Active Protocol: Document 01/26/19 10:00 AB (Rec: 01/26/19 13:03 AB [id number]) Physical Therapy Current Condition Current Condition Evaluation Date 01/26/19 Treatment Diagnosis L4-S1 instr. removal; L3-S1 inst.; L4-5 fusion; difficulty in walking Onset Date 01/25/19 Precautions Lumbar Precautions Log Roll No Twisting Limit Bending Lifting Restriction of 10 lbs Gait Belt above Incisional Area M3 PT-IP Subjective Start: 01/25/19 14:12 Freq: NEEDED Status: Active Protocol: Document 01/27/19 11:01 GGD (Rec: 01/27/19 11:02 GGD [id number]) Subjective Physical Therapy Visit Type Type Patient Refusal Notes Pt having test this am, is NPO , and would like to wait until afternoon, M4 PT-IP Mobility and Gait Start: 01/25/19 14:12 Freq
[2019-01-27 12:06] VITALS: BP 148/75; PULSE 89; RESP 18; TEMP 36.7; O2SAT 93
[2019-01-27] MEDS: SODIUM CHLORIDE 0.9% FLUSH 10 ML IV ×2 (12:14→21:49)
[2019-01-27 15:35] VITALS: BP 133/69; PULSE 90; RESP 18; TEMP 36.7; O2SAT 94
--- NOTE | 2019-01-27 15:35 | PT.IPTN ---
Current Diagnoses Other spondylosis with radiculopathy, lumbar region (01/25/19) Spinal stenosis, lumbar region with neurogenic claudication (01/25/19) Arthrodesis status (01/25/19) Surgery Performed Operation Date: 01/25/19 07:45 Actual Procedures p L3-4 TLIF, L4-5,L5-S1 HWR; L3-4,L4-5,L5-S1 PSF w/Instru.(Not Applicable) - Ping Johns MD Physical Therapy Treatment Note M2 PT-IP Current Condition Start: 01/25/19 14:12 Freq: NEEDED Status: Active Protocol: Document 01/26/19 10:00 AB (Rec: 01/26/19 13:03 AB [id number]) Physical Therapy Current Condition Current Condition Evaluation Date 01/26/19 Treatment Diagnosis L4-S1 instr. removal; L3-S1 inst.; L4-5 fusion; difficulty in walking Onset Date 01/25/19 Precautions Lumbar Precautions Log Roll No Twisting Limit Bending Lifting Restriction of 10 lbs Gait Belt above Incisional Area M3 PT-IP Subjective Start: 01/25/19 14:12 Freq: NEEDED Status: Active Protocol: Document 01/27/19 15:05 LJ (Rec: 01/27/19 15:35 LJ [id number]) Subjective Physical Therapy Visit Type Type Treatment Note Visit Start Time 15:05 Visit Stop Time 15:30 Total Visit Minutes 25 Notes Pt sitting in chair. Wants to practise stairs. Physical Therapy Visit Comments Patient Comments Pt willing to work with therapy Therapy Pain Assessment Pain When Pain Assessed During Mobility Pain Present Pain Present Pain Reported M4 PT-IP Mobility and Gait Start: 01/25/19 14:12 Freq: NEEDED Status: Active Protocol: Document 01/27/19 15:05 LJ (Rec: 01/27/19 15:35 LJ [id number]) PT-Transfer Assessment Sit to and From Stand Sit to and from Stand Contact Guard Assistance Use of Upper Extremities Equipment Transfer Assistive Device Gait Belt Front Wheeled Walker Transfers Transfer Destination Chair Toilet Transfer Ability Level of Assist Contact Guard Assistance Gait Assessment Gait Gait Assistance Required: Standby Assistance Contact Guard Assist Distance (Feet) 240 Able to Maintain Weight Bearing Status Yes During Gait Assistive Devices Assistive Device Gait Belt Front Wheeled Walker Gait Deviations General Gait Pattern Decreased Stride Length Decreased Feet Clearance Factors Limiting Gait Function Factors Limiting Gait Function Decreased Activity Tolerance Decreased Sensation Decreased Strength Limited Range of Motion Pain Poor Balance Stair Climbing Assessment Evaluation Level of Assist On Stairs Standby Assistance Contact Guard Assistance Devices Stair Climbing Assistive Devices Left Railing Right Railing Technique/Endurance Stair Climbing Direction Ascend and Descend Stair Climbing Technique Step to Step Number of Steps Climbed 3 Stair Climbing Set # Repetitions (reps) 3 Comments Stair Climbing Comments Pt was slow and careful using minimal assist with UEs. Demonstrated good posture and control on descent M5 PT-IP Objective Assessments Start: 01/25/19 14:12 Freq: NEEDED Status: Active Protocol: Document 01/26/19 10:00 AB (Rec: 01/26/19 13:03 AB [id number]) Orientation Orientation/Cognition Level of Alertness Alert Orientation Name Age Place Situation Language Function Ability No Deficits Noted Safety Awareness Understands Safety Issues Memory Description No Deficits Noted Gross Range of Motion Lower Extremity ROM Assessment Within Functional Limits Strength Lower Extremity Strength Assessment Within Functional Limits Coordination Assessment Gross Coordination Gross Coordination WNL Sensation Assessment Sensation Gross Sensation Right LE Impaired Sensation Description Numbness Comments Sensation Comments R thigh decrease sensation Muscle Tone Muscle Tone WNL Yes M6 PT-IP Treatment Start: 01/25/19 14:12 Freq: NEEDED Status: Active Protocol: Document 01/27/19 10:30 GGD (Rec: 01/27/19 11:13 GGD [id number]) Physical Therapy Treatment Education Education Provided Precautions M7 PT-IP Assessment and Plan Start: 01/25/19 14:12 Freq: NEEDED Status: Active Protocol: Document 01/27/19 15:05 LJ (Rec: 01/27/19 15:35 LJ [id number]) PT Summary Assessment and Plan Potential Rehabilitation Potential Good Status of Condition at Evaluation Stable Summary Assessment Summary Pt showed good posture with ambulation and stairs. Still tends to scuff feet and take shortened steps. Slow with transfers but exercises safe mechanics. Goals Bed Mobility Goal Independent Transfer Goal Independent Front Wheeled Walker Gait Goal Independent Front Wheel Walker Gait Distance 200 Other Goals up/down 2 steps with 2 posts SBA 8 steps with L rail ascending +8 steps with R rail ascending SBA Days to Meet Goals 5 Frequency of Treatment Frequency Of Treatment Twice a Day Treatment Plan Physical Therapy Treatment Plan Bed Mobility Training Transfer Training Gait Training Therapeutic Exercise Balance Retraining Post Op Education Discharge Planning Hot or Cold Pack Neuromuscular Re-ed Coordination Retraining Manual Therapy Recommendations To Nursing Amount of Assist Needed 1 Person Assist Discharge Recommendations PT Discharge Recommendations Home with Assistance Equipment Needed for Home Before FWW: tall Discharge
--- NOTE | 2019-01-27 17:48 | OT.IP.TRT ---
Current Diagnoses Other spondylosis with radiculopathy, lumbar region (01/25/19) Spinal stenosis, lumbar region with neurogenic claudication (01/25/19) Arthrodesis status (01/25/19) Surgery Performed Operation Date: 01/25/19 07:45 Actual Procedures p L3-4 TLIF, L4-5,L5-S1 HWR; L3-4,L4-5,L5-S1 PSF w/Instru.(Not Applicable) - Ping Johns MD Occupational Therapy Treatment Note M2 OT-IP Current Condition Start: 01/26/19 13:38 Freq: Status: Active Protocol: Document 01/26/19 09:00 [facility] (Rec: 01/26/19 17:03 [facility] [id number]) Occupational Therapy Current Condition Current Condition Evaluation Date 01/26/19 Treatment Diagnosis S/p L3-4 TLIF, L4-5, L5-S1 HWR , L3-4, L4-5, L5-S1 PSF with instr, muscle we Diagnosis Onset Date 01/25/19 Post Operative Precautions Lumbar Precautions Log Roll No Twisting Limit Bending Lifting Restriction of 10 lbs Gait Belt above Incisional Area Weight Bearing Status Weight Bearing Status Weight Bear as Tolerated M3 OT- IP Subjective and Pain Start: 01/26/19 13:38 Freq: Status: Active Protocol: Document 01/27/19 17:38 [facility] (Rec: 01/27/19 17:48 [facility] [id number]) OT- Subjective Occupational Therapy Visit Type Type Treatment Note Visit Start Time 14:20 Visit Stop Time 15:08 Total Visit Minutes 48 Occupational Therapy Visit Comments Patient Comments Pt agreeable to shower. OT Pain Assessment Pain When Pain Assessed During Mobility Pain Present Pain Present Pain Reported Location lower back Intensity 6 Scale Used Numeric (1 - 10) M4 OT- IP ADL's Start: 01/26/19 13:38 Freq: Status: Active Protocol: Document 01/27/19 17:38 [facility] (Rec: 01/27/19 17:48 [facility] [id number]) OT ADL-Dressing General Eval Lower Body Dressing Ability Standby Assistance Areas Needing Assistance Retrieving/Set-up of Clothing Pants/Shorts Socks Comments OT Dressing Comments Pt able to use senior qa tester and sock aid with good safety and awareness for LB dressing. OT ADL-Bathing Bathing Type Bathing Type Shower General Evaluation Bathing Ability Minimal Assistance Areas Needing Assistance Wash/Dry Back Devices Bathing Equipment Hand Held Shower Sprayer Shower Chair with Arms Grab Bars Comments OT Bathing Comments Pt needing reminders to sit while taking off his shorts. M5 OT- IP IADL's Start: 01/26/19 13:38 Freq: Status: Active Protocol: Document 01/26/19 09:00 [facility] (Rec: 01/26/19 17:03 [facility] [id number]) OT-Instrumental Activities of Daily Living Home Safety Awareness Awareness of Need for Assistance at Home Good Awareness Ability to Problem Solve Emergency Able to Problem Solve Situations Medication Management Medication Management No Deficits Identified Meal Preparation Meal Preparation Caregiver Provides Assist Batch Plant Supervisor Batch Plant Supervisor Caregiver Provides Assist M6 OT- IP Functional Cognition Start: 01/26/19 13:38 Freq: Status: Active Protocol: Document 01/27/19 17:38 [facility] (Rec: 01/27/19 17:48 [facility] [id number]) Cognitive Factors Limiting Selfcare Function Cognitive Ability Level of Alertness Alert Patient Orientation Name Place Situation Attention Span Ability Capable of Focused Attention Capable of Sustained Attention Ability to Follow Commands Able to Follow One Step Commands Memory Description No Deficits Noted Safety Awareness Decreased Recall of Precautions Decreased Ability to Apply Precautions Underestimates Need for Assistance Cognitive Comments Cognitive Assessment Comments Pt doing well today to incorporate back precautions for all needs with good safety . M7 OT- IP Mobility and Balance Start: 01/26/19 13:38 Freq: Status: Active Protocol: Document 01/27/19 17:38 [facility] (Rec: 01/27/19 17:48 [facility] [email or web address]) OT-Transfer Assessment Sit to and From Stand Sit to and from Stand Standby Assistance Transfers Transfer Ability Standby Assistance Contact Guard Assistance Technique Transfer Destination Chair Shower Stall Transfer Technique Stand Step Pivot Devices Transfer Assistive Devices Gait Belt Front Wheeled Walker Comments Mobility Comments CGA to help pt step over threshold of shower with FWW. Pt states will assist him for showering. pt plans on sleeping downstairs initially. OT- Balance Assessment Sitting Balance and Reactions Static Sitting Balance Ability Normal Dynamic Sitting Balance Ability Good Standing Balance and Reactions Static Standing Balance Ability Good M8 OT- IP Objective Assessments Start: 01/26/19 13:38 Freq: Status: Active Protocol: Document 01/26/19 09:00 [facility] (Rec: 01/26/19 17:03 [facility] [id number]) OT Gross Range of Motion Upper Extremity Range of Motion Assessment Within Functional Limits OT Strength Upper Extremity Strength Assessment Within Functional Limits OT-Muscle Tone Assessment Muscle Tone WNL Yes M9 OT- IP Assessment and Plan Start: 01/26/19 13:38 Freq: Status: Active Protocol: Document 01/27/19 17:38 [facility] (Rec: 01/27/19 17:48 [facility] [email or web address]) OT Summary Assessment and Plan Potential Rehabilitation Potential Good Analytic Complexity at Evaluation Low Summary Progress Towards Goals Progressing Toward Goals Assessment Summary Pt doing well and looking to go home tomorrow, to touch base with pt's for any final OT needs, as pt expected to discharge tomorrow. Goals Days to Meet Goals 1 Frequency of Treatment Frequency Of Treatment Once a Day Discharge Recommendations OT Discharge Recommendations Home with Assistance Home Equipment Needs Tall FWW
[2019-01-27 19:10] VITALS: BP 140/68; PULSE 87; RESP 16; TEMP 36.6; O2SAT 94
[2019-01-27 23:35] VITALS: BP 131/65; PULSE 97; RESP 19; TEMP 37; O2SAT 94
--- NOTE | 2019-01-27 23:42 | PC.NURSE ---
Addendum entered by Ester Bustillos R.N. 01/28/19 02:49: Complains he moved wrong in bed and now having 9/10 sharp pain in back; medicated with Oxycodone + Vistaril. Original Note: Patient is alert and oriented. Breath sounds diminished but CTA with RA sat of 94%. HRR. Denies nausea. BT present and is passing flatus; had BM earlier today. Denies dysuria, frequency or urgency. Able to turn self in bed. When out of bed using walker and 1 assist and states he feels no weakness and is steady on feet. Dressing to back is intact with shadow drainage noted in right upper corner. States pain is 5/10 but had pain meds at 2148; declines offer of ice pack. Complains of numbness in right anterior thigh present since surgery; evening RN states MD is aware. CMS is otherwise intact. Currently sitting up in chair so does not have SCD's on. Fall risk score is moderate; calling for assistance appropriately.
[2019-01-28] MEDS: OXYCODONE IR 5 MG TABLET 10 MG PO ×4 (02:46→16:38)
[2019-01-28] MEDS: hydrOXYzine pamoate 25 MG CAPSULE PO ×3 (02:46→13:43)
[2019-01-28 05:32] VITALS: BP 132/67; PULSE 90; RESP 19; TEMP 37; O2SAT 93
[2019-01-28 07:25] VITALS: BP 142/71; PULSE 88; RESP 19; TEMP 36.2; O2SAT 92
[2019-01-28] MEDS: SODIUM CHLORIDE 0.9% FLUSH 10 ML IV (07:57)
[2019-01-28] MEDS: NICOTINE 21 MG PATCH TOP (07:57)
--- NOTE | 2019-01-28 08:32 | P.DS_ITS ---
History of Present Illness Date Patient Seen: 01/28/19 Time Patient Seen: 08:32 Chief complaint: [id number] Narrative: Please see HPI recorded in chart. Discharge Providers Date of admission: 01/25/19 05:26 Discharge Date: 01/28/19 Consults: 01/25/19 12:37 Consult to Respiratory Therapy Evaluate & Treat Comment: Physician Instructions: Evaluate and treat 01/25/19 14:10 Consult to Occupational Therapy Evaluate & Treat Comment: Physician Instructions: Evaluate and treat Consult to Physical Therapy Evaluate & Treat Comment: Physician Instructions: Evaluate and Treat Discharge provider: Vivien Wood PA-C Summary Discharge Diagnosis: s/p L3-4 TLIF cage, L4 through S1 HWR with revision laminectomy, exploration of fusion, L3 through S1 posterior screw fixation Hospital Course: Patient has been having chronic back pain and worsening lumbar radiculopathy. Patient had prior fusion surgery and was doing well for several years until his pain started to worsen. Patient failed multiple conservative management with worsening pain weakness and numbness in her lower extremity. Patient has been having difficulty performing activity of daily living. After discussing risks benefits of treatment options, patient elected proceed with surgery. After informed consent he was taken to the operating room and underwent L4-S1 HWR with L3-S1 posterior TLIF with Dr. Johns which he tolerated well with no c omplications. He was then taken to the acute care unit where he has been progressing well. He has been somewhat slow to mobilize but has been progressing and successfully climbed stairs POD#2. His pain has been well controlled with oxycodone and vistaril. He will be discharged with supply of both, along with a prescription for a tall FWW. He has good support at home. Anticipate discharge to home later today pending physical therapy. Status at Discharge Cognitive/behavioral status at discharge: oriented Functional status at discharge: uses cane/walker Overall status at discharge: patient is progressing back to baseline Exam Vital Signs (past 8 hours): - 01/28/19 05:32 01/28/19 07:25 Temperature 98.6 F 97.1 F L Pulse Rate 90 88 Respiratory Rate 19 19 Blood Pressure 132/67 142/71 H Pulse Oximetry 93 92 Oxygen Delivery Method Room Air Oxygen Flow Rate 0 Narrative Exam Narrative: 68 year old male sitting comfortably in chair, alert and oriented in no acute distress. Dressing in place over lumbar spine is intact, small area of shadow drainage on right upper quadrant unchanged since yesterday. Active flexion/extension of the ankle. Sensation intact except decreased in small area on right lateral thigh. Palpable pedal pulses. Objective Labs Result Diagrams: 01/26/19 05:54 Discharge Plan Discharge Plan Patient Disposition: Home Discharge comment: Home today if cleared by PT Discharge Med Rec/Prescriptions Prescriptions: New acetaminophen 325 mg Tablet 650 mg PO Q6HR PRN (Reason: Pain, Mild (1-3)) Qty: 60 RF: 0 docusate sodium [DOK] 100 mg Capsule 100 mg PO BID Qty: 60 RF: 0 hydroxyzine pamoate 25 mg Capsule 25 mg PO Q4HR PRN (Reason: Nausea And Vomiting) Qty: 60 RF: 0 oxycodone 5 mg Tablet 10 mg PO Q4-6H PRN (Reason: Pain, Severe (7-10)) Qty: 60 RF: 0 Tall Front Wheel Walker Qty: 1 RF: 0 Continued zolpidem [Ambien] 5 mg Tablet 5 mg PO BEDTIME RF: 0 tizanidine 4 mg Capsule 4 mg PO Q8H PRN (Reason: Pain) RF: 0 Discontinued oxycodone 5 mg Capsule 15 mg PO Q6H PRN (Reason: Pain) RF: 0 acetaminophen 500 mg Tablet 1,000 mg PO BID RF: 0 Follow up/Referrals: Ping Johns MD [Physician] - Provider Discharge Instructions Diet: Diet as Tolerated Activity: Weight bear as tolerated. Use walker for support. No bending, lifting, or twisting. Cold/Heat Therapy: Ice packs as needed. Skin/Wound/Dressing Care Report to your healthcare provider any signs of infection, such as:: chills, fever, night sweats, unusual drainage and unusual redness Dressing: Leave dressing in place. Call the office if dressing becomes saturated. Visit Report/Discharge Packet Instructions: Oxycodone, Hydroxyzine, DI for Transforaminal Lumbar Interbody Fusion Visit Report Forms: Stroke Signs & Symptoms Discharge Data Attending Provider: Ping Johns Admit Date/Time: 01/25/19 05:26 Quality VTE Deep Vein Thrombosis/Pulmonary Embolism Present on Admission: No
--- NOTE | 2019-01-28 09:25 | PT.IPTN ---
Current Diagnoses Other spondylosis with radiculopathy, lumbar region (01/25/19) Spinal stenosis, lumbar region with neurogenic claudication (01/25/19) Arthrodesis status (01/25/19) Surgery Performed Operation Date: 01/25/19 07:45 Actual Procedures p L3-4 TLIF, L4-5,L5-S1 HWR; L3-4,L4-5,L5-S1 PSF w/Instru.(Not Applicable) - Ping Johns MD Physical Therapy Treatment Note M2 PT-IP Current Condition Start: 01/25/19 14:12 Freq: NEEDED Status: Active Protocol: Document 01/26/19 10:00 [facility] (Rec: 01/26/19 13:03 [facility] [id number]) Physical Therapy Current Condition Current Condition Evaluation Date 01/26/19 Treatment Diagnosis L4-S1 instr. removal; L3-S1 inst.; L4-5 fusion; difficulty in walking Onset Date 01/25/19 Precautions Lumbar Precautions Log Roll No Twisting Limit Bending Lifting Restriction of 10 lbs Gait Belt above Incisional Area M3 PT-IP Subjective Start: 01/25/19 14:12 Freq: NEEDED Status: Active Protocol: Document 01/28/19 09:25 [facility] (Rec: 01/28/19 11:04 [facility] [id number]) Subjective Physical Therapy Visit Type Type Treatment Note Visit Start Time 09:00 Visit Stop Time 09:25 Total Visit Minutes 25 Number of MEMBERSHIP SALES MANAGER Visits 3 Physical Therapy Visit Comments Patient Comments Pt willing to work with therapy. Therapy Pain Assessment Pain When Pain Assessed During Mobility Pain Present Pain Present Pain Reported M4 PT-IP Mobility and Gait Start: 01/25/19 14:12 Freq: NEEDED Status: Active Protocol: Document 01/28/19 09:25 [facility] (Rec: 01/28/19 11:04 [facility] [id number]) PT-Transfer Assessment Sit to and From Stand Sit to and from Stand Contact Guard Assistance Use of Upper Extremities Equipment Transfer Assistive Device Gait Belt Front Wheeled Walker Orthotic/Prosthetic Devices or Brace: No Transfers Transfer Destination Chair Transfer Ability Level of Assist Contact Guard Assistance Gait Assessment Gait Gait Assistance Required: Standby Assistance Contact Guard Assist Distance (Feet) 240 Able to Maintain Weight Bearing Status Yes During Gait Assistive Devices Assistive Device Gait Belt Front Wheeled Walker Gait Deviations General Gait Pattern Decreased Stride Length Decreased Feet Clearance Factors Limiting Gait Function Factors Limiting Gait Function Decreased Activity Tolerance Decreased Sensation Decreased Strength Limited Range of Motion Pain Poor Balance M5 PT-IP Objective Assessments Start: 01/25/19 14:12 Freq: NEEDED Status: Active Protocol: Document 01/26/19 10:00 [facility] (Rec: 01/26/19 13:03 AB [id number]) Orientation Orientation/Cognition Level of Alertness Alert Orientation Name Age Place Situation Language Function Ability No Deficits Noted Safety Awareness Understands Safety Issues Memory Description No Deficits Noted Gross Range of Motion Lower Extremity ROM Assessment Within Functional Limits Strength Lower Extremity Strength Assessment Within Functional Limits Coordination Assessment Gross Coordination Gross Coordination WNL Sensation Assessment Sensation Gross Sensation Right LE Impaired Sensation Description Numbness Comments Sensation Comments R thigh decrease sensation Muscle Tone Muscle Tone WNL Yes M6 PT-IP Treatment Start: 01/25/19 14:12 Freq: NEEDED Status: Active Protocol: Document 01/28/19 09:25 [facility] (Rec: 01/28/19 11:04 [facility] [id number]) Physical Therapy Treatment Education Education Provided Precautions Equipment Issued Equipment Type and Company Tall FWW. M7 PT-IP Assessment and Plan Start: 01/25/19 14:12 Freq: NEEDED Status: Active Protocol: Document 01/28/19 09:25 [facility] (Rec: 01/28/19 11:04 [facility] [id number]) PT Summary Assessment and Plan Summary Assessment Summary Pt improving with ambulation. He needed cues for sit <> stand. He is safe for home D/C when medically stable. Frequency of Treatment Frequency Of Treatment Twice a Day Treatment Plan Physical Therapy Treatment Plan Bed Mobility Training Transfer Training Gait Training Therapeutic Exercise Balance Retraining Post Op Education Discharge Planning Hot or Cold Pack Neuromuscular Re-ed Coordination Retraining Manual Therapy Recommendations To Nursing Amount of Assist Needed 1 Person Assist Discharge Recommendations PT Discharge Recommendations Home with Assistance
--- NOTE | 2019-01-28 12:17 | CM.DPC ---
DCP: continued: Pt now with a d/c order for home. Met with pt in followup. Introduced self and role. Pt is found sitting up in bedside chair, his new tall FWW nearby. He confirms that his is on her way from [place] to pick him up and only concern is when his followup appt with orthopedics will be. WALTER Shook is preparing the d/c paperwork. She confirms the initial paperwork from [facility] says appt is scheduled in [facility] for 02/05. Pt is updated and assured this info will also be noted in his d/c paperwork. Pt says he feels comfortable with the d/c today and that my back and especially the front of my legs feel so much better than before the surgery.
--- NOTE | 2019-01-28 12:39 | PM.PN.1 ---
Exam Vital Signs (past 8 hours): - 01/28/19 05:32 01/28/19 07:25 Temperature 98.6 F 97.1 F L Pulse Rate 90 88 Respiratory Rate Blood Pressure 132/67 142/71 H Pulse Oximetry 93 92 Oxygen Delivery Method Room Air Oxygen Flow Rate 0 Objective Labs Result Diagrams: 01/26/19 05:54 Assessment & Plan Assessment & Plan narrative: Patient is admitted after surgery. Patient is cleared by PT/OT for discharge. Patient has been stable and progressing with physical therapy. Patient is neurovascularly intact on exam. Patient has no signs or symptoms of DVT. Patient's dressing is clean dry and intact. Patient is cleared to be discharged to home. Quality VTE Deep Vein Thrombosis/Pulmonary Embolism Present on Admission: No
[2019-01-28] MEDS: ACETAMINOPHEN 325 MG TABLET 650 MG PO (13:43)
--- NOTE | 2019-01-28 16:32 | OT.IP.TRT ---
Current Diagnoses Other spondylosis with radiculopathy, lumbar region (01/25/19) Spinal stenosis, lumbar region with neurogenic claudication (01/25/19) Arthrodesis status (01/25/19) Surgery Performed Operation Date: 01/25/19 07:45 Actual Procedures p L3-4 TLIF, L4-5,L5-S1 HWR; L3-4,L4-5,L5-S1 PSF w/Instru.(Not Applicable) - Ping Johns MD Occupational Therapy Treatment Note Document 01/28/19 16:30 [facility] (Rec: 01/28/19 16:32 [facility] [id number]) OT- Subjective Occupational Therapy Visit Type Type Administrative Note Notes Quick check in with pt to answer any questions at this time. Pt declines activity at this time. All questions answered.
--- NOTE | 2019-01-28 17:45 | PC.NURSE ---
Discharge Note Pt A&O, VSS, RA. Complaint of pain, medicated per MAR prior to discharge. Discharge instructions along w/ scripts given to pt, no questions or concerns from pt and . Pt given discharge packet, belongings and walker. Taken down via wheelchair to personal vehicle.
== END 2019-01-28 16:45 | disposition home or self-care (01) | DRG 454 ==
PROVIDERS: Admitting Provider Orthopaedic Surgery Orthopaedic Surgery of the Spine; Visit Provider Orthopaedic Surgery Orthopaedic Surgery of the Spine
PROC: 0SG00AJ Fusion of Lumbar Vertebral Joint with Interbody Fusion Device, Posterior Approach, Anterior Column, Open Approach (ICD-10-PCS; principal; 2019-01-25 07:45)
DX: M48.062 Spinal stenosis, lumbar region with neurogenic claudication (principal); F11.20 Opioid dependence, uncomplicated; M47.26 Other spondylosis with radiculopathy, lumbar region; J44.9 Chronic obstructive pulmonary disease, unspecified; F17.210 Nicotine dependence, cigarettes, uncomplicated; F10.20 Alcohol dependence, uncomplicated
CPT/HCPCS: 36415; 72100; 76000; 85014; 85018; 94760; 97116; 97161; 97165; 97530; 97535; 99406; C1776; C9290; J0131; J0690; J1170; J2250; J3010; J3410